=== PATIENT | female | born 2000 | race Caucasian/White ===

== ENCOUNTER 2022-03-12 16:27 | Emergency (ER) | payer OTHER ==
[~2022-03-12] VITALS: Ht 152.4 cm; Wt 46.7 kg
[~2022-03-12 16:27] MED LIST: PARAFON FORTE500 MG PO
== END 2022-03-12 19:16 | disposition home or self-care (01) ==
LOC: ER 16:27 → EMR PED 16:31 → ER 16:31 → EMR PED 19:16
DX: J98.9 Respiratory disorder, unspecified (principal); Z88.0 Allergy status to penicillin; Z20.822 Contact with and (suspected) exposure to COVID-19

== ENCOUNTER 2022-09-18 14:28 | Inpatient (IN) | payer OTHER ==
[~2022-09-18] VITALS: Ht 167.6 cm; Wt 48.1 kg
--- NOTE | 2022-09-18 15:58 | NUR ---
PTE REFIERE DOLOR DE ABDOMEN EN CUADRANTE INFERIOR DERECHA, DESDE LAS 4 AM.
--- NOTE | 2022-09-18 17:07 | NUR ---
SE ORIENTA PTE SOBRE EL TRATAMIENTO ORDENADO POR LA DRA ZUNIGA PTE ALERTA Y ORIENTADO POR 3 SE RELAIZAN MUESTRAS DE LABORATORIO Y SE ADMINISTRAN MEDICAMENTOS EVA ORDENADO.
== END 2022-09-20 12:31 | disposition home or self-care (01) | DRG 343 ==
LOC: EMR PED 14:28 → PED 22:20
PROVIDERS: Surgery; ADMIT Emergency Medicine; ATTEND Emergency Medicine
PROC: BW21Y0Z Computerized Tomography (CT Scan) of Abdomen and Pelvis using Other Contrast, Unenhanced and Enhanced (ICD-10-PCS; 2022-09-18)
PROC: 0DTJ4ZZ Resection of Appendix, Percutaneous Endoscopic Approach (ICD-10-PCS; principal; 2022-09-19 11:00)
DX: K35.890 Other acute appendicitis without perforation or gangrene (principal); Z20.822 Contact with and (suspected) exposure to COVID-19